=== PATIENT | female | born 1935 | race Caucasian/White ===

== ENCOUNTER 2019-03-26 17:54 | Emergency (ER) | payer MEDICARE ==
[2019-03-26 18:47] LABS: BASOPHILS % (AUTO) 0.7 % (0.0-5.0); EOSINOPHILS % (AUTO) 2.2 % (0.0-8.0); HEMATOCRIT 41.8 % (36-48); LYMPHOCYTES % (AUTO) 35.3 % (21.0-51.0); MEAN CORPUSCULAR HEMOGLOBIN 31.4 pg (27.0-33.0); MEAN CORPUSCULAR HGB CONC 32.8 g/dL (32.0-36.0); MEAN CORPUSCULAR VOLUME 95.9 fL (79-99); MONOCYTES % (AUTO) 9.9 % (3.0-13.0); NEUTROPHILS % (AUTO) 51.7 % (40.0-77.0); PLATELET COUNT (AUTO) 328 K/uL (130-400); RED BLOOD CELL COUNT(AUTO) 4.36 MIL/uL (4.00-5.50); RED CELL DISTRIBUTION WIDTH 13.8 % (11.0-15.5); WHITE BLOOD COUNT (AUTO) 8.9 K/uL (4.8-10.8)
[2019-03-26 18:57] LABS: CARBON DIOXIDE 28 mmol/L (21-32); CHLORIDE 106 mmol/L (101-111); CREATININE 0.8 mg/dL (0.5-1.5); GLOMERULAR FILTR. RATE CALC 73 mL/min (>60); GLUCOSE,RANDOM 94 mg/dL (70-105); POTASSIUM 3.9 mmol/L (3.5-5.1); SODIUM SERUM 142 mmol/L (136-145); UREA NITROGEN, BLOOD 9 mg/dL (7-18)
[2019-03-26 19:00] LABS: INR 0.95 (0.85-1.15); PARTIAL THROMBOPLASTIN TIME 26.5 SEC (26.3-35.5)
[2019-03-26 19:01] LABS: ALANINE AMINOTRANSFERASE 23 U/L (12-78); ALBUMIN 3.4 g/dL (3.5-5.0); ASPARTATE AMINOTRANSFERASE 26 U/L (10-37); BILIRUBIN,DIRECT < 0.1 mg/dL (0.0-0.3); BILIRUBIN,TOTAL 0.4 mg/dL (0.2-1.0); CREATINE KINASE, TOTAL 149 U/L (21-232); TOTAL PROTEIN, SERUM 7.3 g/dL (6.0-8.3)
== END 2019-03-26 21:07 | disposition home or self-care (01) ==
LOC: EDH 17:54
DX: S61.211A Laceration without foreign body of left index finger without damage to nail, initial encounter (principal); S00.83XA Contusion of other part of head, initial encounter; Z98.890 Other specified postprocedural states; V03.90XA Pedestrian on foot injured in collision with car, pick-up truck or van, unspecified whether traffic or nontraffic accident, initial encounter; Y93.89 Activity, other specified; Y92.89 Other specified places as the place of occurrence of the external cause; Y99.8 Other external cause status
CPT/HCPCS: 36415; 70450; 72125; 80048; 80076; 82550; 85025; 85610; 85730